=== PATIENT | female | born 1985 | race Caucasian/White ===

== ENCOUNTER → 2017-06-23 | Outpatient (CLI) | payer BC ==
[2017-06-23 17:14] LABS: Basophils # (auto) 0 uL; Basophils % (auto) 0.4 % (0.0-2.0); CONDITION Y; Eosinophils # (auto) 0 uL; Eosinophils % (auto) 0.4 % (0.0-7.0); Hematocrit 34.9 % (36.0-46.0); Lymphocytes # (auto) 1.7 uL; Lymphocytes % (auto) 21.2 % (10.0-50.0); Mean Corpuscular Hemoglobin 31.5 pg (28.0-32.0); Mean Corpuscular Hgb Conc. 34.3 g/dL (32.0-36.0); Mean Corpuscular Volume 91.8 fL (80.0-100.0); Mean Platelet Volume 7.1 fL (7.4-10.4); Monocytes # (auto) 0.5 uL; Monocytes % (auto) 6.9 % (0.0-12.0); Neutrophils # (auto) 5.6 uL; Neutrophils % (auto) 71.1 % (37.0-80.0); Platelet Count (auto) 315 10^3/uL (140-450); Red Cell Distribution Width 13.1 % (11.6-16.0); White Blood Cell 7.8 10^3/uL (4.4-10.8)
== END | disposition home or self-care (01) ==
LOC: LAB 16:43
PROVIDERS: ATTEND Specialist
DX: Z34.80 Encounter for supervision of other normal pregnancy, unspecified trimester (principal); Z36 Encounter for antenatal screening of mother; Z3A.00 Weeks of gestation of pregnancy not specified
CPT/HCPCS: 36415; 81220; 83036; 84702; 85025; 86592; 86703; 86762; 86850; 86900; 86901; 87086; 87340

== ENCOUNTER → 2017-07-17 | Outpatient (CLI) | payer BC ==
[2017-07-18 07:15] LABS: Basophils # (auto) 0 uL; Basophils % (auto) 0.4 % (0.0-2.0); Eosinophils # (auto) 0.1 uL; Eosinophils % (auto) 0.8 % (0.0-7.0); Hematocrit 33.2 % (36.0-46.0); Hemoglobin 11.2 g/dL (12.2-16.2); Lymphocytes # (auto) 1.8 uL; Lymphocytes % (auto) 25.5 % (10.0-50.0); Mean Corpuscular Hemoglobin 30.7 pg (28.0-32.0); Mean Corpuscular Hgb Conc. 33.8 g/dL (32.0-36.0); Mean Corpuscular Volume 90.7 fL (80.0-100.0); Mean Platelet Volume 6.9 fL (7.4-10.4); Monocytes # (auto) 0.5 uL; Monocytes % (auto) 7.3 % (0.0-12.0); Neutrophils # (auto) 4.6 uL; Nucleated Red Blood Cells % 0.1 %; Platelet Count (auto) 258 10^3/uL (140-450); Red Cell Distribution Width 12.6 % (11.6-16.0)
== END | disposition home or self-care (01) ==
LOC: LAB 08:10
PROVIDERS: ATTEND Specialist
DX: O99.810 Abnormal glucose complicating pregnancy (principal); Z3A.00 Weeks of gestation of pregnancy not specified
CPT/HCPCS: 36415; 82951; 85025

== ENCOUNTER → 2017-09-18 | Outpatient (CLI) | payer BC | END | disposition home or self-care (01) | LOC: LAB 16:51 | PROVIDERS: ATTEND Obstetrics & Gynecology | DX: O23.599 Infection of other part of genital tract in pregnancy, unspecified trimester (principal); Z3A.00 Weeks of gestation of pregnancy not specified | CPT/HCPCS: 87081 ==

== ENCOUNTER → 2017-09-22 | Outpatient (CLI) | payer BC ==
[2017-09-22 08:55] LABS: Basophils # (auto) 0 uL; Basophils % (auto) 0.3 % (0.0-2.0); Eosinophils # (auto) 0 uL; Eosinophils % (auto) 0.4 % (0.0-7.0); Hematocrit 32.6 % (36.0-46.0); Hemoglobin 10.7 g/dL (12.2-16.2); Lymphocytes # (auto) 1.7 uL; Lymphocytes % (auto) 19.3 % (10.0-50.0); Mean Corpuscular Hemoglobin 27.2 pg (28.0-32.0); Mean Corpuscular Hgb Conc. 32.7 g/dL (32.0-36.0); Mean Corpuscular Volume 83.4 fL (80.0-100.0); Mean Platelet Volume 7.2 fL (6.9-10.8); Monocytes # (auto) 0.6 uL; Monocytes % (auto) 6.4 % (0.0-12.0); Neutrophils # (auto) 6.5 uL; Neutrophils % (auto) 73.6 % (37.0-80.0); Nucleated Red Blood Cells % 0.1 %; Platelet Count (auto) 248 10^3/uL (140-450); Red Cell Distribution Width 14.8 % (11.8-14.3); White Blood Cell 8.8 10^3/uL (4.4-10.8)
== END | disposition home or self-care (01) ==
LOC: LAB 08:23
PROVIDERS: ATTEND Obstetrics & Gynecology
DX: Z34.80 Encounter for supervision of other normal pregnancy, unspecified trimester (principal)
CPT/HCPCS: 36415; 85025; 86592

== ENCOUNTER 2017-10-01 14:15 | Observation (INO) | payer BC ==
[2017-10-01] MEDS ORDERED: PREN-96 PO (15:26)
== END 2017-10-01 17:00 | disposition home or self-care (01) | DRG 782 ==
LOC: LDRP 14:15
PROVIDERS: ADMIT Specialist; ATTEND Specialist
DX: O36.8130 Decreased fetal movements, third trimester, not applicable or unspecified (principal); Z3A.38 38 weeks gestation of pregnancy
CPT/HCPCS: 59025; 76818; 81002; G0378

== ENCOUNTER 2017-10-04 12:07 | Observation (INO) | payer BC ==
[~2017-10-04 12:07] MED LIST: PREN-96 PO
== END 2017-10-04 13:30 | disposition home or self-care (01) | DRG 782 ==
LOC: LDRP 12:07
PROVIDERS: ADMIT Specialist; ATTEND Specialist
DX: O36.8130 Decreased fetal movements, third trimester, not applicable or unspecified (principal); Z3A.38 38 weeks gestation of pregnancy
CPT/HCPCS: 59025; 76818; 81002; G0378

== ENCOUNTER 2017-10-09 15:55 | Inpatient (IN) | payer BC ==
[~2017-10-09] VITALS: Ht 158.8 cm; Wt 69.4 kg
[2017-10-09] MEDS ORDERED: LACT. RINGERS/OXYTOCIN 20UNITS 1,000 ML IV SCH (17:01)
[2017-10-09] MEDS ORDERED: LACTATED RINGER'S 1,000 ML IV SCH (17:01)
[2017-10-09] MEDS ORDERED: LIDOCAINE 2%HCL (LOCAL ANESTH.) INJ 20ML MDV IJ PRN (17:15)
[2017-10-09] MEDS ORDERED: NALBUPHINE HCL 10 MG/1ml INJECTION IV PRN (17:15)
[2017-10-09] MEDS ORDERED: WITCH HAZEL-GLYCERIN PAD TOP PRN (17:15)
[2017-10-09] MEDS ORDERED: PHISODERM TOP SOLN 240ML BTL TOP PRN (17:15)
[2017-10-09] MEDS ORDERED: DERMOPLAST 60ML BOTTLE TOP PRN (17:15)
[2017-10-09 17:41] LABS: Basophils # (auto) 0 uL; Eosinophils # (auto) 0 uL; Eosinophils % (auto) 0.1 % (0.0-7.0); Lymphocytes # (auto) 1.6 uL; Platelet Count (auto) 262 10^3/uL (140-450)
[2017-10-09 17:42] LABS: Urine Bilirubin Negative (Negative); Urine Blood 2+ /uL (Negative); Urine Color Yellow (Yellow); Urine Glucose Normal (Normal); Urine Ketone Negative (Negative); Urine Nitrite Negative (Negative); Urine RBC 44 /hpf (0 - 4); Urine Squamous Epithelial Cell MOD /hpf (<5); Urine Urobilinogen Normal (Negative); Urine pH 6.5 (5.0-8.0)
[2017-10-09 17:43] LABS: Basophils % (auto) 0.4 % (0.0-2.0); Hematocrit 34.1 % (36.0-46.0); Lymphocytes % (auto) 15.9 % (10.0-50.0); Mean Corpuscular Hgb Conc. 32.4 g/dL (32.0-36.0); Mean Corpuscular Volume 80.2 fL (80.0-100.0); Mean Platelet Volume 7.4 fL (6.9-10.8); Monocytes # (auto) 0.8 uL; Monocytes % (auto) 7.9 % (0.0-12.0); Neutrophils # (auto) 7.7 uL; Neutrophils % (auto) 75.7 % (37.0-80.0); Red Cell Distribution Width 15.5 % (11.8-14.3); White Blood Cell 10.2 10^3/uL (4.4-10.8)
[2017-10-09 17:52] LABS: INR 0.87 (0.9-1.15); Partial Thromboplastin Time 24.5 sec (22.64-33.71); Prothrombin Time 9.5 sec (9.37-12.3)
[2017-10-09 17:58] LABS: Albumin 2.9 g/dL (3.4-5.0); BUN/Creatinine Ratio 9.7; Calcium 9.2 mg/dL (8.5-10.1); Potassium 3.7 mmol/L (3.5-5.1)
[2017-10-09 18:01] LABS: Bilirubin, Total 0.3 mg/dL (0.2-1.0)
[2017-10-09] MEDS ORDERED: OXYTOCIN 10UNIT/ML 1ML VIAL IM ONE (18:45)
[2017-10-09] MEDS ORDERED: DOCUSATE CALCIUM 240 MG CAP PO ONE (19:30)
[2017-10-09] MEDS: IBUPROFEN 600 MG TAB PO PRN (19:35)
[2017-10-09] MEDS ORDERED: ACETAMINOPHEN/CODEINE#3 (300/30mg) TAB PO ONE (21:45)
[2017-10-09] MEDS: ONDANSETRON ODT 4 MG TAB PO PRN (21:58)
[2017-10-09 23:05] VITALS: BP 113/69
[2017-10-10] MEDS: IBUPROFEN 600 MG TAB PO PRN ×5 (01:14→20:08)
[2017-10-10] MEDS: ONDANSETRON ODT 4 MG TAB PO PRN ×4 (01:35→20:09)
[2017-10-10 04:00] VITALS: BP 114/63
[2017-10-10 08:00] VITALS: BP 123/82
[2017-10-10] MEDS: DOCUSATE CALCIUM 240 MG CAP PO SCH (10:05)
[2017-10-10 11:06] VITALS: BP 117/75
[2017-10-10 15:57] VITALS: BP 120/80
[2017-10-10 20:00] VITALS: BP 120/68
[2017-10-11] VITALS: BP 122/73
[2017-10-11] MEDS: ONDANSETRON ODT 4 MG TAB PO PRN (00:39)
[2017-10-11] MEDS: IBUPROFEN 600 MG TAB PO PRN ×2 (00:40→11:17)
[2017-10-11 04:30] VITALS: BP 103/54
[2017-10-11 07:39] VITALS: BP 120/75
[2017-10-11] MEDS: DOCUSATE CALCIUM 240 MG CAP PO SCH (10:00)
== END 2017-10-11 11:50 | disposition home or self-care (01) | DRG 775 ==
LOC: LDRP 15:55
PROVIDERS: ADMIT Specialist; ATTEND Specialist
PROC: 0WQNXZZ Repair Female Perineum, External Approach (ICD-10-PCS; principal; 2017-10-09)
PROC: 10E0XZZ Delivery of Products of Conception, External Approach (ICD-10-PCS; 2017-10-09)
PROC: 3E0P7VZ Introduction of Hormone into Female Reproductive, Via Natural or Artificial Opening (ICD-10-PCS; 2017-10-09)
DX: O62.3 Precipitate labor (principal); O70.0 First degree perineal laceration during delivery; Z37.0 Single live birth; Z3A.39 39 weeks gestation of pregnancy
CPT/HCPCS: 36415; 59025; 59409; 80053; 81001; 81002; 85025; 85610; 85730; 86850; 86900; 86901; 96372; Q0162

== ENCOUNTER → 2018-08-17 | Outpatient (CLI) | payer BC ==
[2018-08-17 14:06] LABS: Basophils # (auto) 0 uL; Basophils % (auto) 0.7 % (0.0-2.0); Eosinophils # (auto) 0 uL; Eosinophils % (auto) 0.8 % (0.0-7.0); Hematocrit 42.8 % (36.0-46.0); Hemoglobin 14.3 g/dL (12.2-16.2); Lymphocytes # (auto) 1.6 uL; Lymphocytes % (auto) 37.5 % (10.0-50.0); Mean Corpuscular Hemoglobin 29.9 pg (28.0-32.0); Mean Corpuscular Hgb Conc. 33.4 g/dL (32.0-36.0); Mean Corpuscular Volume 89.6 fL (80.0-100.0); Monocytes # (auto) 0.3 uL; Monocytes % (auto) 7.1 % (0.0-12.0); Neutrophils # (auto) 2.4 uL; Neutrophils % (auto) 53.9 % (37.0-80.0); Nucleated Red Blood Cells % 0.1 %; Platelet Count (auto) 259 10^3/uL (140-450); Red Blood Cells 4.77 10^6/uL (4.0-5.20); White Blood Cell 4.4 10^3/uL (4.4-10.8)
[2018-08-17 14:44] LABS: Albumin 3.9 g/dL (3.4-5.0); BUN/Creatinine Ratio 18.3; Calcium 7.9 mg/dL (8.5-10.1); Potassium 3.8 mmol/L (3.5-5.1)
[2018-08-17 14:47] LABS: Bilirubin, Total 0.3 mg/dL (0.2-1.0); Total Protein 6.9 g/dL (6.4-8.2)
== END | disposition home or self-care (01) ==
LOC: LAB 13:43
PROVIDERS: ATTEND Registered Nurse General Practice
DX: R05 Cough (principal)
CPT/HCPCS: 36415; 80053; 85025; 86664

== ENCOUNTER → 2019-06-01 | Outpatient (CLI) | payer BC ==
[2019-06-01 08:16] LABS: Basophils # (auto) 0 uL; Basophils % (auto) 0.4 % (0.0-2.0); Eosinophils # (auto) 0 uL; Eosinophils % (auto) 1.2 % (0.0-7.0); Hematocrit 44.1 % (36.0-46.0); Hemoglobin 14.9 g/dL (12.2-16.2); Lymphocytes # (auto) 1.2 uL; Lymphocytes % (auto) 30.2 % (10.0-50.0); Mean Corpuscular Hemoglobin 30.2 pg (28.0-32.0); Mean Corpuscular Hgb Conc. 33.8 g/dL (32.0-36.0); Mean Corpuscular Volume 89.4 fL (80.0-100.0); Monocytes # (auto) 0.4 uL; Monocytes % (auto) 9.1 % (0.0-12.0); Neutrophils # (auto) 2.4 uL; Neutrophils % (auto) 59.1 % (37.0-80.0); Nucleated Red Blood Cells % 0.2 %; Platelet Count (auto) 271 10^3/uL (140-450); Red Blood Cells 4.93 10^6/uL (4.0-5.20); Red Cell Distribution Width 14.2 % (11.8-14.3)
[2019-06-01 08:58] LABS: Potassium 3.7 mmol/L (3.5-5.1)
[2019-06-01 09:05] LABS: BUN/Creatinine Ratio 18.5; Bilirubin, Total 0.6 mg/dL (0.2-1.0); Calcium 8.4 mg/dL (8.5-10.1); Total Protein 7.1 g/dL (6.4-8.2)
[2019-06-01 09:11] LABS: Beta HCG, Quantitative < 1 mlU/mL (1-3); Thyroid Stimulating Hormone 1.42 uIU/mL (0.358-3.74)
== END | disposition home or self-care (01) ==
LOC: LAB 07:43
PROVIDERS: ATTEND Physician Assistant
DX: E56.9 Vitamin deficiency, unspecified (principal); R53.83 Other fatigue; R61 Generalized hyperhidrosis; R01.1 Cardiac murmur, unspecified; F41.9 Anxiety disorder, unspecified; M25.562 Pain in left knee
CPT/HCPCS: 36415; 80053; 80061; 82306; 82607; 83036; 84443; 84702; 85025

== ENCOUNTER → 2020-02-09 | Outpatient (CLI) | payer OTHER | END | disposition home or self-care (01) | LOC: LAB 10:27 | PROVIDERS: ATTEND Nurse Practitioner Family | DX: Z03.818 Encounter for observation for suspected exposure to other biological agents ruled out (principal) | CPT/HCPCS: C9803; U0003 ==

== ENCOUNTER → 2020-05-12 | Outpatient (CLI) | payer OTHER | END | disposition home or self-care (01) | LOC: LAB 13:51 | PROVIDERS: ATTEND Nurse Practitioner Family | DX: Z03.818 Encounter for observation for suspected exposure to other biological agents ruled out (principal) | CPT/HCPCS: 87635 ==